=== PATIENT | male | born 1970 ===

== ENCOUNTER 2023-07-11 10:25 | Inpatient (IN) | payer OTHER ==
[~2023-07-11] VITALS: Ht 167.6 cm; Wt 78.9 kg
[~2023-07-11 10:25] MED LIST: INTEGRA F CAPS1 EACH PO; INTESTINEX1 CA1 PO; Neurin-Sl Tablet Sl SL; OXYC1TAB9 PO; PYRIDOXINE HCL100 MG PO
[2023-07-11] MEDS ORDERED: METFORMIN HCL500 M3 PO (16:54)
[2023-07-11] MEDS ORDERED: ALTOPREV40 MG PO (16:54)
[2023-07-11] MEDS ORDERED: COZAAR25 MG PO (16:54)
[2023-07-17] MEDS ORDERED: LOSARTAN POTASS50 MG (07:48)
[2023-07-17 12:08] LABS: HEMATOCRIT 42.2 % (39.0-48.0); HEMOGLOBIN 14.1 g/dL (13-16.00); MEAN CELL VOLUME 88.9 fL (80.0-100.00); MEAN CORPUSCULAR HEMOGLOBIN 29.6 pg (27.00-32.0); MEAN CORPUSCULAR HGB CONC 33.3 g/dl (32.0-36.0); PLATELET COUNT 250 K/uL (150-450); RED BLOOD COUNT 4.75 M/uL (4.00-6.00); RED CELL DISTRIBUTION WIDTH 14.7 % (11.5-14.5)
[2023-07-18 06:21] LABS: ABG PH 7.488 (7.35-7.45); ABG PO2 132.8 mmHg (80-100); ABG pCO2 33.9 mmHg (35-45); BASE EXCESS 2.3 mmol/l; SaO2 99.2 %
[2023-07-18 06:22] LABS: BICARBONATE 25.1 mmol/l (23-25); Tco2 26.2 mmol/l; allen test SATISFACTORY; o2 21 %; puncture site RADIAL LEFT
[2023-07-18 07:03] LABS: HEMATOCRIT 43.8 % (39.0-48.0); HEMOGLOBIN 14.8 g/dL (13-16.00); MEAN CELL VOLUME 88.7 fL (80.0-100.00); MEAN CORPUSCULAR HGB CONC 33.8 g/dl (32.0-36.0); PLATELET COUNT 255 K/uL (150-450); RED BLOOD COUNT 4.94 M/uL (4.00-6.00); RED CELL DISTRIBUTION WIDTH 14.5 % (11.5-14.5)
[2023-07-18 07:36] LABS: ALBUMIN 3.3 gm/dL (3.4-5.0); CREATININE SERUM 1.32 mg/dL (0.70-1.30); GFR 56.96; MAGNESIUM 2.4 mg/dL (1.8-2.4); PHOSPHOROUS 3.4 mg/dL (2.5-4.9); POTASSIUM 4.97 mEq/L (3.5-5.1)
[2023-07-19 07:35] LABS: HEMATOCRIT 46.3 % (39.0-48.0); HEMOGLOBIN 15.5 g/dL (13-16.00); MEAN CELL VOLUME 87.3 fL (80.0-100.00); MEAN CORPUSCULAR HEMOGLOBIN 29.3 pg (27.00-32.0); MEAN CORPUSCULAR HGB CONC 33.5 g/dl (32.0-36.0); PLATELET COUNT 297 K/uL (150-450); RED CELL DISTRIBUTION WIDTH 14.7 % (11.5-14.5)
[2023-07-19 08:00] LABS: CALCIUM 9.6 mg/dL (8.5-10.1); CREATININE SERUM 1.29 mg/dL (0.70-1.30); GFR 58.49; MAGNESIUM 2.3 mg/dL (1.8-2.4); PHOSPHOROUS 3.3 mg/dL (2.5-4.9); POTASSIUM 4.92 mEq/L (3.5-5.1)
[2023-07-20 10:41] LABS: HEMATOCRIT 44.5 % (39.0-48.0); MEAN CELL VOLUME 88.9 fL (80.0-100.00); MEAN CORPUSCULAR HGB CONC 33.7 g/dl (32.0-36.0); PLATELET COUNT 351 K/uL (150-450); RED CELL DISTRIBUTION WIDTH 14.6 % (11.5-14.5)
[2023-07-20 10:53] LABS: CALCIUM 9.5 mg/dL (8.5-10.1); CREATININE SERUM 1.17 mg/dL (0.70-1.30); GFR 65.46; MAGNESIUM 2.5 mg/dL (1.8-2.4); PHOSPHOROUS 3.4 mg/dL (2.5-4.9); POTASSIUM 4.51 mEq/L (3.5-5.1)
[2023-07-22 07:05] LABS: HEMATOCRIT 39.8 % (39.0-48.0); HEMOGLOBIN 13.4 g/dL (13-16.00); MEAN CORPUSCULAR HEMOGLOBIN 30.1 pg (27.00-32.0); MEAN CORPUSCULAR HGB CONC 33.8 g/dl (32.0-36.0); PLATELET COUNT 308 K/uL (150-450); RED BLOOD COUNT 4.47 M/uL (4.00-6.00); RED CELL DISTRIBUTION WIDTH 14.1 % (11.5-14.5)
[2023-07-22 07:23] LABS: ALBUMIN 2.9 gm/dL (3.4-5.0); BILIRUBIN TOTAL 0.4 mg/dL (0.3-1.2); CALCIUM 8.7 mg/dL (8.5-10.1); CREATININE SERUM 1.05 mg/dL (0.70-1.30); GFR 74.17; GLOBULINA 2.9 G/DL (2.4-3.5); MAGNESIUM 2.5 mg/dL (1.8-2.4); PHOSPHOROUS 3.2 mg/dL (2.5-4.9); POTASSIUM 4.31 mEq/L (3.5-5.1); TOTAL PROTEIN 5.8 gm/dL (6.4-8.2)
[2023-07-23 06:53] LABS: HEMATOCRIT 37.1 % (39.0-48.0); HEMOGLOBIN 12.8 g/dL (13-16.00); MEAN CELL VOLUME 87.4 fL (80.0-100.00); MEAN CORPUSCULAR HEMOGLOBIN 30.2 pg (27.00-32.0); MEAN CORPUSCULAR HGB CONC 34.5 g/dl (32.0-36.0); PLATELET COUNT 287 K/uL (150-450); RED BLOOD COUNT 4.24 M/uL (4.00-6.00); RED CELL DISTRIBUTION WIDTH 14.4 % (11.5-14.5)
[2023-07-23 06:56] LABS: CALCIUM 8.1 mg/dL (8.5-10.1); CREATININE SERUM 0.89 mg/dL (0.70-1.30); GFR 89.76; MAGNESIUM 2.7 mg/dL (1.8-2.4); PHOSPHOROUS 3.1 mg/dL (2.5-4.9); POTASSIUM 3.73 mEq/L (3.5-5.1)
== END 2023-07-26 10:14 | disposition home or self-care (01) | DRG 331 ==
LOC: SURH 07-17 05:55 → O/R 07-17 05:55 → SURH 07-17 10:45
PROVIDERS: Internal Medicine; Internal Medicine Geriatric Medicine; ADMIT Colon & Rectal Surgery; ATTEND Colon & Rectal Surgery
PROC: 07BC4ZX Excision of Pelvis Lymphatic, Percutaneous Endoscopic Approach, Diagnostic (ICD-10-PCS; 2023-07-17)
PROC: 0DTL4ZZ Resection of Transverse Colon, Percutaneous Endoscopic Approach (ICD-10-PCS; principal; 2023-07-17 14:30)
DX: C18.2 Malignant neoplasm of ascending colon (principal); K66.0 Peritoneal adhesions (postprocedural) (postinfection)